=== PATIENT | male | born 1950 | race Caucasian/White ===

== ENCOUNTER → 2022-04-18 | Outpatient (CLI) | payer MEDICARE, BC ==
[~2022-04-18] MED LIST: ACETAMINOPHEN TAB 650MG DOSE (2X325MG) PO PRN; ALBUTEROL 90 MCG/ACT 8GM HFA INHALER INH PRN; ALBUTEROL SULFATE 2.5 MG/0.5 ML INH NEB SOLN INH PRN; ATOR80TA59 PO; BEBTELOVIMAB 175MG 2ML VIAL (EUA) IV ONE; BENZ200C70 PO; CLOP75TA2 PO; ECOT81TA5 PO; EPINEPHrine INJ 1 MG/ML 1ML AMP IM PRN; FENO160T10 PO; LISI5TAB11 PO; METO1TAB32 PO; MUCI1TAB16 PO; NS 1,000 ML IV SCH; ONDA4TAB6 PO; PROAAER10 INH; diphenhydrAMINE 50MG/ML VIAL (J1200) IV PRN; methylPREDNISolone 125MG 2ML VIAL IV PRN
== END ==
LOC: M OPCLI4 15:28
PROVIDERS: ATTEND Internal Medicine
DX: Z53.9 Procedure and treatment not carried out, unspecified reason (principal)